=== PATIENT | female | born 2000 | race Caucasian/White ===

== ENCOUNTER 2019-09-11 10:03 | Emergency (ER) | payer OTHER ==
--- NOTE | 2019-09-11 11:44 | RAD ---
CT BRAIN WITHOUT CONTRAST: HISTORY:Altered mental status COMPARISON:12/26/2017 FINDINGS: There are foci of decreased attenuation in the periventricular white matter, consistent with chronic small vessel ischemic disease. Changes of cortical atrophy and bilateral basal ganglia calcifications are stable. 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 No evidence of acute infarct, hemorrhage, midline shift or abnormal extra-axial fluid collections is seen. The ventricular size is appropriate and the basilar cisterns are patent. The bony calvarium is intact. The visualized paranasal sinuses and mastoid air cells are well aerated. IMPRESSION: No CT evidence of acute intracranial process.
--- NOTE | 2019-09-11 12:10 | RAD ---
FRONTAL RADIOGRAPH PELVIS: Date: 09/11/2019 COMPARISON: None. HISTORY: Injury, trauma, pain. FINDINGS: There is no widening of the sacroiliac joints or pubic symphysis. The pelvic ring appears intact. The femoral heads project normally over their respective acetabulum. IMPRESSION: No displaced fracture seen. POS: [facility]
--- NOTE | 2019-09-11 12:11 | RAD ---
LEFT KNEE 4 VIEWS: Date: 09/11/2019 HISTORY: Left knee pain, injury. FINDINGS/IMPRESSION: No acute fracture or dislocation is identified. POS: [facility]
[2019-09-11] MEDS ORDERED: Ibuprofen 200 MG TAB ONE (12:24)
[2019-09-11 12:31] LABS: Bilirubin Negative (Negative); Blood, Urine Negative (Negative); Clarity Turbid (Clear); Glucose, Urine (Dipstick) Normal (Negative); Leukocyte Negative Leu/uL (Negative); Nitrite Negative (Negative); Protein, Urine (Dipstick) Negative (Neg-Trace); Urobilinogen Normal mg/dL (Less than 2)
[2019-09-11 13:31] LABS: Hemoglobin 14.7 g/dL (12.0-16.0); Mean Corpuscular HGB CONC 33.5 g/dL (32.0-36.0); Mean Corpuscular Hemoglobin 31.9 pg (25.0-35.0); Mean Corpuscular Volume 95.2 fL (78.0-98.0); Platelet Count 200 thou/uL (130-400); RBC Distribution Width 11.4 % (11.5-14.5); Red Blood Cell (RBC) Count 4.59 mill/uL (4.00-5.20); White Blood Cell (WBC) Count 16.4 thou/uL (4.8-10.8)
[2019-09-11 13:49] LABS: Pregnancy Test - Urine (BHCG) Negative (Negative)
[2019-09-11 13:49] LABS: ALT (SGPT) 16 U/L (8-55); AST (SGOT) 26 U/L (5-30); Albumin 4.4 g/dL (3.5-5.0); Alkaline Phosphatase 65 U/L (40-100); Anion Gap 11 mmol/L (10-20); BUN (Urea Nitrogen) 10 mg/dL (8.4-21.0); Bilirubin, Total 1.6 mg/dL (0.2-1.2); Calc. Creatinine Clearance 0 mL/min (70-130); Calcium 9.4 mg/dL (7.8-10.44); Carbon Dioxide 25 mmol/L (22-29); Chloride 106 mmol/L (98-107); Estimated GFR-MDRD Greater than 90; Globulin 3.1 g/dL (2.4-3.5); Glucose 91 mg/dL (70-105); Lipase 18 U/L (8-78); Potassium 3.5 mmol/L (3.5-5.1); Protein, Total 7.5 g/dL (6.0-8.3); Sodium 138 mmol/L (136-145)
[2019-09-11 13:50] LABS: Pregu Control Background? CLEAR/WHITE (CLR/WHITE); Pregu Control Bar Appear? YES (CONTROL BAR)
[2019-09-11 13:56] LABS: Band 8 % (5-11); Lymphocytes 6 % (28-48); MDiff Complete? YES; Monocytes 7 % (0-4); Neutrophil 78 % (31-61); RBC Morphology Normal; Reactive Lymphocytes 1 % (0-10)
[2019-09-11] MEDS ORDERED: Iopamidol-370 76% 500 ML 1 ML ONE (14:48)
--- NOTE | 2019-09-11 15:24 | CT ---
CT ABDOMEN AND PELVIS WITH IV CONTRAST: Date: 09/11/2019 HISTORY: 18-year-old female with injury. Pain in right pelvis. FINDINGS: The lung bases are clear. Liver, spleen, pancreas, adrenal glands, and kidneys are intact. Gallbladder and urinary bladder also appear intact. Uterus and ovaries are present. No free air or free fluid is seen in the abdomen or p surekha. There is a fracture involving the anterior aspect of the right upper sacral ala. There are bilateral pars articularis defects at L5 level. IMPRESSION: Fracture of the right sacral ala. POS: [facility]
[2019-09-11] MEDS ORDERED: Adacel (T-DAP) 0.5 ML SYRINGE ONE (15:29)
--- NOTE | 2019-09-12 08:02 | RAD ---
LUMBAR SPINE 3 VIEWS: Date: 09/11/2019 COMPARISON: None. HISTORY: Injury, trauma, pain. FINDINGS: Lumbar vertebral body height appears normal. Lumbar pedicles appear intact on frontal imaging. There is mild anterolisthesis at L5-S1 measuring approximately 6.0 mm. Probable bilateral L5 pars def ects are noted. This could be best assessed with oblique imaging. IMPRESSION: Mild anterolisthesis at L5-S1 with probable bilateral L5 pars defects. POS: [facility]
== END 2019-09-11 15:38 | disposition home or self-care (01) ==
LOC: ERS 10:03
DX: S32.10XA Unspecified fracture of sacrum, initial encounter for closed fracture (principal); V23.4XXA Motorcycle driver injured in collision with car, pick-up truck or van in traffic accident, initial encounter
CPT/HCPCS: 72100; 72170; 74177; 80053; 81003; 81025; 83690; 85025; 90471; 90715; Q9967

== ENCOUNTER 2019-10-30 09:02 | Outpatient (CLI) | payer BC ==
--- NOTE | 2019-10-30 09:54 | RAD ---
XR Lumbar Spine 2 Or 3 View History: Thoracolumbar fracture Comparison: CT abdomen and pelvis September 11, 2019 Findings: Revisualization of the right S1 and S2 fractures. Low-grade levoscoliosis. Pars intra-articular is defects at L5. Impression: 1. Right sacral alar fractures of S1-S2, similar. 2. Mild levoscoliosis. 3. Bilateral L5 pars interarticularis defects without significant listhesis.
--- NOTE | 2019-10-30 10:23 | RAD ---
XR Pelvis Minimum 3 Views History: Thoracolumbar fracture with spinal cord injury Comparison: CT abdomen pelvis September 11, 2019 Findings: Similar appearance right sacral alar fractures, S1 and S2. No new acute superimposed fractu re is appreciated. Impression: Healing right S1 and S2 fractures.
== END 2019-10-30 09:03 | disposition home or self-care (01) ==
LOC: TBSIIMAG 09:02
PROVIDERS: ATTEND Neurological Surgery
DX: S22.009D Unspecified fracture of unspecified thoracic vertebra, subsequent encounter for fracture with routine healing (principal); S32.009D Unspecified fracture of unspecified lumbar vertebra, subsequent encounter for fracture with routine healing; S24.109D Unspecified injury at unspecified level of thoracic spinal cord, subsequent encounter; S32.10XD Unspecified fracture of sacrum, subsequent encounter for fracture with routine healing; M41.86 Other forms of scoliosis, lumbar region; M43.06 Spondylolysis, lumbar region; M53.86 Other specified dorsopathies, lumbar region
CPT/HCPCS: 72100; 72190